=== PATIENT | female | born 1975 | race Caucasian/White ===

== ENCOUNTER 2017-01-29 12:00 | Inpatient (IN) | payer SELFPAY ==
[~2017-01-29] VITALS: Ht 175.3 cm; Wt 100.1 kg
[2017-01-29] VITALS (8 sets, daily range): BP systolic 91–142; BP diastolic 59–87; PULSE 97–135; RESP 16–20; TEMP 97.4–102.9; O2SAT 95–100
[2017-01-29] MEDS ORDERED: SODIUM CHLOR 0.9% 1000 ML INJ 400 ML IV ONE (12:27)
[2017-01-29] MEDS ORDERED: VANCOMYCIN INJ 1,000 MG in SODIUM CHLOR 0.9% 250 ML INJ 250 ML IV STA (12:27)
[2017-01-29] MEDS ORDERED: SODIUM CHLOR 0.9% 1000 ML INJ 1,000 ML IV ONE ×2 (12:27)
[2017-01-29] MEDS ORDERED: PIPERACIL-TAZO 4.5 GM PREMIX 100 ML IV STA (12:27)
--- NOTE | 2017-01-29 12:27 | PD ---
HPI Chief Complaint: Skin Problem Time Seen by Provider: 12:22 Travel History International Travel<30 days: No Contact w/Intl Traveler<30days: No Traveled to known affect area: No History of Present Illness HPI 41-year-old female presents to the emergency Department with 2 day history of fever, chills, severe sore throat, as well as left foot pain, swelling and erythema secondary to a crack between the third and fourth digits which is been present for 3 weeks according to the patient. Patient states she worked all day yesterday with swelling of the left foot causing a blister to the left distal lateral MIP joint. There is no drainage from that blister or the wound itself. Patient states the pain in the foot is an 8 out of 10. She states she's been having decreased ability to eat secondary to her throat pain the Past 2 days. Patient denies cough, shortness of breath, chest pain, abdominal pain, nausea, vomiting, or diarrhea. She denies urinary symptoms. Patient is not a smoker. 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 She has no history of diabetes. She does take blood pressure medication, but she states she gets it from the "urgent care clinic" but does not have a regular primary care physician. She states she did not take her blood pressure medicine this morning. She is allergic to seafood, and iodine, but no medication allergies. PFSH Past Medical History Hypertension: Yes ?: Not LMP: 01/12/17 Social History Alcohol Use: No Tobacco Use: No Substance Use: No Allergies-Medications (Allergen,Severity, Reaction): Coded Allergies: iodine (Verified Allergy, Unknown, 01/29/17) Uncoded Allergies: SEAFOOD (Allergy, Severe, ANAPHYLAXIS, 01/29/17) Reported Meds & Prescriptions Reported Meds & Active Scripts Active Reported Valsartan-Hydrochlorothiazide 160-25 Mg Tab 1 Tab PO DAILY Review of Systems Except as stated in HPI: all other systems reviewed are Neg General / Constitutional: Positive: Fever, Chills, Other (shaking chills the last 2 nights.) Eyes: No: Visual changes HENT: Positive: Sore Throat, No: Headaches, Vertigo, Lightheadedness, Rhinitis , Rhinorrhea, Congestion, Nosebleed, Neck Stiffness, Neck Pain, Ear Discharge, Earache Cardiovascular: No: Chest Pain or Discomfort Respiratory: No: Cough, Shortness of Breath Gastrointestinal: Positive: Nausea, No: Vomiting, Diarrhea, Abdominal Pain Genitourinary: No: Dysuria Musculoskeletal: No: Pain Skin: No Rash Neurologic: No: Weakness Psychiatric: No: Anxiety, Depression, Suicidal Ideations, Homicidal Ideation Endocrine: No: Polydipsia Hematologic/Lymphatic: No: Easy Bruising Physical Exam Narrative GENERAL: Patient appears in no acute distress. SKIN: Warm and dry. Normal color. Normal turgor. Patient has a fissure secondary to athlete's foot between the third and fourth digits with localized swelling, erythema, warmth, and tenderness. Patient has a serous fluid-filled blister to the distal lateral foot over the MIP joint. Erythema extends up to the ankle joint without further streaking noted. HEAD: Atraumatic. Normocephalic. EYES: Pupils equal and round. No scleral icterus. No injection or drainage. ENT: No nasal bleeding or discharge. Mucous membranes pink and moist. TMs are somewhat dull bilaterally with mild injection greater in the left than the right. Posterior pharynx shows swollen tonsils bilaterally with whitish exudate , but uvula is midline and airway appears patent. There is no sinus tenderness to palpation or percussion. NECK: Trachea midline. Supple nontender without significant lymphadenopathy. CARDIOVASCULAR: Regular rate and rhythm. RESPIRATORY: No accessory muscle use. Clear to auscultation. Breath sounds equal bilaterally. GASTROINTESTINAL: Abdomen soft, non-tender, nondistended. Hepatic and splenic margins not palpable. MUSCULOSKELETAL: Extremities without clubbing, cyanosis, or edema. No obvious deformities. Patient is swelling and tenderness along the dorsal and lateral foot where area of cellulitis is noted. There is no obvious signs of abscess or draining wound. Range of motion is full. Sensation is normal bilaterally in the lower extremities. NEUROLOGICAL: Awake and alert. No obvious cranial nerve deficits. Motor grossly within normal limits. Five out of 5 muscle strength in the arms and legs. Normal speech. PSYCHIATRIC: Appropriate mood and affect; insight and judgment normal. Data Data Last Documented VS Vital Signs Date Time Temp Pulse Resp B/P Pulse Ox O2 Delivery O2 Flow Rate FiO2 01/29/17 12:25 98.6 129 16 96/61 96 Room Air Orders Foot, Complete ([id number]) (01/29/17 12:27) Electrocardiogram (01/29/17 12:27) Complete Blood Count With Diff (01/29/17 12:27) Comprehensive Metabolic Panel (01/29/17 12:27) Lactic Acid Sepsis Protocol (01/29/17 12:27) Urinalysis - C+S If Indicated (01/29/17 12:27) Blood Culture (01/29/17 12:27) Chest, Single Ap (01/29/17 12:27) Blood Glucose (01/29/17 12:27) Ecg Monitoring (01/29/17 12:27) Iv Access Insert/Monitor (01/29/17 12:27) Oximetry (01/29/17 12:27) Oxygen Administration (01/29/17 12:27) Acetaminophen (Tylenol) (01/29/17 12:30) Piperacil-Tazo 4.5 Gm Premix (Zosyn 4.5 (01/29/17 12:27) Vancomycin Inj (Vancomycin Inj) (01/29/17 12:27) Sodium Chlor 0.9% 1000 Ml Inj (Ns 1000 M (01/29/17 12:27) Sodium Chlor 0.9% 1000 Ml Inj (Ns 1000 M (01/29/17 12:27) Sodium Chlor 0.9% 1000 Ml Inj (Ns 1000 M (01/29/17 12:27) Ketorolac Inj (Toradol Inj) (01/29/17 12:45) Urine Culture (01/29/17 12:40) Drug Screen, Random Urine (01/29/17 13:28) Ondansetron Inj (Zofran Inj) (01/29/17 13:45) Admit To Inpatient (01/29/17 ) Vital Signs (Adult) Q4H (01/29/17 14:56) Activity Oob With Assistance (01/29/17 14:56) Dance Artist / Telemetry .CONTINUOUS (01/29/17 14:56) Diet Regular Basic (01/29/17 Dinner) Sodium Chlor 0.9% 1000 Ml Inj (Ns 1000 M (01/29/17 14:56) Sodium Chloride 0.9% Flush (Ns Flush) (01/29/17 15:00) Sodium Chloride 0.9% Flush (Ns Flush) (01/29/17 21:00) Ondansetron Inj (Zofran Inj) (01/29/17 15:00) Basic Metabolic Panel (Bmp) (01/30/17 06:00) Complete Blood Count With Diff (01/30/17 06:00) Enoxaparin Inj (Lovenox Inj) (01/29/17 15:00) Acetaminophen (Tylenol) (01/29/17 15:00) Acetamin-Hydrocod 325-5 Mg ([place] 5-325 (01/29/17 15:00) Acetamin-Hydrocod 325-7.5 Mg ([place] 7.5 (01/29/17 15:00) Naloxone Inj (Narcan Inj) (01/29/17 15:00) Docusate Sodium-Senna (Claire-Colace) (01/29/17 21:00) Magnesium Hydroxide Liq (Milk Of Magnesi (01/29/17 15:00) Sennosides (Senokot) (01/29/17 15:00) Bisacodyl Supp (Dulcolax Supp) (01/29/17 15:00) Lactulose Liq (Lactulose Liq) (01/29/17 15:00) Inpatient Certification (01/29/17 ) Admit Order (Ed Use Only) (01/29/17 14:57) Labs Laboratory Tests Test 01/29/17 12:40 White Blood Count 22.7 TH/MM3 Red Blood Count 4.68 MIL/MM3 Hemoglobin 13.3 GM/DL Hematocrit 40.1 % Mean Corpuscular Volume 85.6 FL Mean Corpuscular Hemoglobin 28.5 PG Mean Corpuscular Hemoglobin 33.3 % Concent Red Cell Distribution Width 14.2 % Platelet Count 314 TH/MM3 Mean Platelet Volume 7.0 FL Neutrophils (%) (Auto) 88.2 % Lymphocytes (%) (Auto) 6.5 % Monocytes (%) (Auto) 3.9 % Eosinophils (%) (Auto) 1.1 % Basophils (%) (Auto) 0.3 % Neutrophils # (Auto) 20.0 TH/MM3 Lymphocytes # (Auto) 1.5 TH/MM3 Monocytes # (Auto) 0.9 TH/MM3 Eosinophils # (Auto) 0.3 TH/MM3 Basophils # (Auto) 0.1 TH/MM3 CBC Comment DIFF FINAL Differential Comment Urine Color YELLOW Urine Turbidity HAZY Urine pH 5.0 Urine Specific [place] 1.016 Urine Protein TRACE mg/dL Urine Glucose (UA) NEG mg/dL Urine Ketones NEG mg/dL Urine Occult Blood MOD Urine Nitrite NEG Urine Bilirubin NEG Urine Urobilinogen LESS THAN 2.0 MG/DL Urine Leukocyte Esterase TRACE Urine RBC 39 /hpf Urine WBC 8 /hpf Urine Squamous Epithelial 6 /hpf Cells Urine Bacteria OCC /hpf Urine Mucus FEW /lpf Microscopic Urinalysis Comment CATH-CULTURE IND Sodium Level 133 MEQ/L Potassium Level 3.3 MEQ/L Chloride Level 98 MEQ/L Carbon Dioxide Level 26.9 MEQ/L Anion Gap 8 MEQ/L Blood Urea Nitrogen 35 MG/DL Creatinine 2.17 MG/DL Estimat Glomerular Filtration 25 ML/MIN Rate Random Glucose 150 MG/DL Lactic Acid Level 1.5 mmol/L Calcium Level 8.0 MG/DL Total Bilirubin 0.5 MG/DL Aspartate Amino Transf 10 U/L (AST/SGOT) Alanine Aminotransferase 14 U/L (ALT/SGPT) Alkaline Phosphatase 103 U/L Total Protein 7.2 GM/DL Albumin 3.1 GM/DL Urine Opiates Screen NEG Urine Barbiturates Screen NEG Urine Amphetamines Screen NEG Urine Benzodiazepines Screen NEG Urine Cocaine Screen NEG Urine Cannabinoids Screen NEG MDM Medical Decision Making Medical Screen Exam Complete: Yes Emergency Medical Condition: Yes Differential Diagnosis Tonsillitis. Fever. Possible sepsis. Left foot cellulitis. Left foot blister. Hypotensive. Tachycardic. Narrative Course Patient appears medically stable at time of exam. Labs ordered including CBC, CMP, lactic acid, blood cultures 2, urinalysis. IV access is obtained and the patient is given normal saline bolus 3 L per sepsis protocol. EKG and chest x-ray is ordered. Patient is given 4.5 mg IV Zosyn, and 1000 mg IV vancomycin. Patient is given 30 mg Toradol IV as well as 1000 mg acetaminophen by mouth. Patient is discussed with Dr. Alcazar. CBC shows leukocytosis of 22.7. CMP shows potassium of 3.3, sodium of 133, BUN is 35, creatinine is 2.17, random glucose is 150, calcium is 8.0, albumin is 3.1 Lactic acid is 1.5. 1340 hrs. call was placed to the hospitalist for admission. 1400 hrs. patient's blood pressure is noted to be in the 70s over 50. A second IV is placed by nursing staff and third liter started of normal saline bolus. Dr. Alcazar is informed of this. Patient responded to third liter of fluid after second IV is placed. 1500 hrs. the patient was discussed with Dr. Gilliland who agreed to admit the patient. Sepsis Criteria SIRS Criteria (2 or more): Heart rate over 90, WBC > 23686, < 4000 or > 10% bands Sepsis Criteria (SIRS+source): Infect source susp/known Severe Sepsis (+one): Hypotension, Acute Oliguria/Renal Failure Criteria Outcome: Meets severe sepsis criteria Diagnosis Primary Impression: Sepsis Qualified Code: A41.9 - Sepsis, due to unspecified organism Additional Impressions: Hypotension Qualified Code: I95.9 - Hypotension, unspecified hypotension type Creatinine elevation Urinary tract infection Qualified Code: N30.01 - Acute cystitis with hematuria Tonsillitis Tachycardia Hyponatremia Hypokalemia Admitting Information Admitting Physician Requests: Admit Condition: Stable Jenaro Viveros Jan 29, 2017 12:27
[2017-01-29] MEDS ORDERED: VALS160T6 PO (12:28)
[2017-01-29] MEDS ORDERED: ACETAMINOPHEN 325 MG TAB PO ONE (12:30)
[2017-01-29] MEDS ORDERED: KETOROLAC TROMETHAMINE 30 MG/ML (IVP) VIAL IV PUSH ONE (12:45)
--- NOTE | 2017-01-29 13:05 | RADRPT ---
EXAM DATE/TIME: 01/29/2017 12:48 [facility] COMPARISON: No previous studies available for comparison. INDICATIONS : Fever. MEDICAL HISTORY : Hypertension. SURGICAL HISTORY : Tubal ligation. ENCOUNTER: Initial ACUITY: 3 days PAIN SCORE: 0/10 LOCATION: Bilateral chest FINDINGS: A single view of the chest demonstrates elevation right hemidiaphragm without evidence of mass, infil trate or effusion. The cardiomediastinal contours are unremarkable heart normal in size.. Osseous s tructures are intact. CONCLUSION: 1. Elevation right hemidiaphragm. Unknown chronicity. 2. Lungs otherwise clear. Tano Hollingsworth MD on January 29, 2017 at 13:03 Board Certified Radiologist. This report was verified electronically.
--- NOTE | 2017-01-29 13:06 | RADRPT ---
EXAM DATE/TIME: 01/29/2017 12:49 [facility] COMPARISON: No previous studies available for comparison. INDICATIONS : Left foot pain and swelling. No prior trauma. Round blister near fifth digit. MEDICAL HISTORY : None. SURGICAL HISTORY : Tubal ligation. ENCOUNTER: Initial ACUITY: 2 weeks PAIN SCORE: 10/10 LOCATION: Left foot. FINDINGS: Three view examination of the left foot demonstrates no dislocation, or fracture. Soft tissue promin ence adjacent to the fifth metatarsophalangeal joint. The tarsal bones appear intact. The interphala ngeal and metatarsophalangeal joints are intact. The calcaneus is intact. Bony mineralization is no rmal. CONCLUSION: Soft tissue prominence lateral distal left foot. No fracture or periosteal reaction. Tano Hollingsworth MD on January 29, 2017 at 13:04 Board Certified Radiologist. This report was verified electronically.
[2017-01-29 13:09] LABS: BASOPHIL # 0.1 TH/MM3 (0-0.2); BASOPHIL % 0.3 % (0.0-2.0); EOSINOPHIL # 0.3 TH/MM3 (0-0.4); EOSINOPHIL % 1.1 % (0.0-4.0); HEMATOCRIT 40.1 % (35.0-46.0); HEMO FLAGS DIFF FINAL; LYMPH % 6.5 % (9.0-44.0); LYMPHOCYTE # 1.5 TH/MM3 (1.0-4.8); MEAN CELL VOLUME 85.6 FL (80.0-100.0); MEAN CORPUSCULAR HEMOGLOBIN 28.5 PG (27.0-34.0); MEAN CORPUSCULAR HGB CONC 33.3 % (32.0-36.0); MONO % 3.9 % (0.0-8.0); NEUT % 88.2 % (16.0-70.0); PLATELET COUNT 314 TH/MM3 (150-450); RED BLOOD COUNT 4.68 MIL/MM3 (4.00-5.30); RED CELL DISTRIBUTION WIDTH 14.2 % (11.6-17.2); WHITE BLOOD COUNT 22.7 TH/MM3 (4.0-11.0)
[2017-01-29 13:15] LABS: BACTERIA, URINE OCC /hpf; BLOOD, URINE MOD (NEG); COMMENT (UR) CATH-CULTURE IND; CULTURE IF INDICATED CATH CULTURE IND; GLUCOSE,URINE NEG (NEG); KETONE, URINE NEG (NEG); MUCUS URINE FEW /lpf (OCC); NITRITE,URINE NEG (NEG); SQUAMOUS EPITHELIAL CELL URINE 6 /hpf (0-5); URINE COLOR YELLOW (YELLW/STRAW)
[2017-01-29 13:25] LABS: ANION GAP 8 MEQ/L (5-15); AST (GOT) 10 U/L (15-37); BICARBONATE 26.9 MEQ/L (21.0-32.0); BLOOD UREA NITROGEN 35 MG/DL (7-18); CHLORIDE 98 MEQ/L (98-107); GLOMERULAR FILTRATION RATE 25 ML/MIN (>89); POTASSIUM 3.3 MEQ/L (3.5-5.1); SODIUM (NA) 133 MEQ/L (136-145)
[2017-01-29 13:26] LABS: ALT (GPT) 14 U/L (10-53)
[2017-01-29 13:28] LABS: ALKALINE PHOSPHATASE 103 U/L (45-117); TOTAL BILIRUBIN ADULT 0.5 MG/DL (0.2-1.0)
[2017-01-29] MEDS ORDERED: ONDANSETRON HCL 4 MG/2 ML VIAL IV PUSH ONE (13:45)
[2017-01-29] MEDS ORDERED: ONDANSETRON HCL 4 MG/2 ML VIAL IVP PRN (15:00)
[2017-01-29] MEDS ORDERED: NALOXONE HCL 0.4 MG/ML AMP IV PRN (15:00)
[2017-01-29] MEDS ORDERED: ACETAMINOPHEN/HYDROcodone 325 MG/5 MG TAB PO PRN (15:00)
[2017-01-29] MEDS ORDERED: SENNOSIDES 8.6 MG TAB PO PRN (15:00)
[2017-01-29] MEDS ORDERED: BISACODYL 10 MG SUPP RECTAL PRN (15:00)
[2017-01-29] MEDS ORDERED: MAGNESIUM HYDROXIDE SUSP 30 ML CUP PO PRN (15:00)
[2017-01-29] MEDS ORDERED: SODIUM CHLORIDE 0.9% FLUSH 10 ML FLUSH IV FLUSH PRN (15:00)
[2017-01-29] MEDS ORDERED: LACTULOSE SYRUP 20 GM/30 ML CUP PO PRN (15:00)
[2017-01-29] MEDS: SODIUM CHLOR 0.9% 1000 ML INJ 1,000 ML IV SCH ×2 (15:44→21:10)
[2017-01-29] MEDS: ENOXAPARIN SODIUM 40 MG/0.4 ML SYRINGE SQ SCH (15:45)
[2017-01-29] MEDS ORDERED: Vancomycin Consult Pharmacy 1 EA OTHER SCH (17:00)
--- NOTE | 2017-01-29 17:36 | HHI.HP ---
[facility] Primary Care Physician No Primary Care Physician Admission Diagnosis Sepsis/Left foot cellulitis/UTI/Hypotension/ Diagnoses: Travel History International Travel<30 Days: No Contact w/Intl Traveler <30 Da: No Traveled to Known Affected Are: No Sepsis Criteria SIRS Criteria (2 or more): Heart rate over 90, WBC > 54771, < 4000 or > 10% bands Sepsis Criteria (SIRS+source): Infect source susp/known Severe Sepsis (+one): Organ Dysfunction, Hypotension History of Present Illness Mrs. Hernandez is a 41 year old female. She came into the ER today secondary to a left foot infection. She says that she's had a fissure between her third and fourth toe and that this has become tender has opened has started draining and erythema has spread up her distal foot she has a blister laterally. At this time she also reports that she's developed a sore throat. She denies any urinary symptoms. Findings today are consistent with sepsis. These include tachycardia, leukocytosis, transient hypotension, and acute renal insufficiency. Her vital signs and lab findings are worse in her clinical presentation. Sepsis is explained to the patient and she is agreeable to stay. No other complaints today. She is healthy at baseline and denies any previous infections like this. She does not know of any immunocompromise status. She does not abuse drugs and has never used IV drugs. She feels she is not at high risk for HIV exposure, but is willing to have testing of this. Review of Systems Constitutional: COMPLAINS OF: Fatigue, Fever, DENIES: Weight loss Eyes: DENIES: Blurred vision, Diplopia, Vision loss Ears, nose, mouth, throat: COMPLAINS OF: Throat pain, DENIES: Hearing loss, Vertigo Respiratory: DENIES: Apneas, Cough, Snoring, Wheezing, Sputum production Cardiovascular: DENIES: Chest pain, Palpitations, Syncope Gastrointestinal: DENIES: Abdominal pain, Black stools, Bloody stools Musculoskeletal: COMPLAINS OF: Joint pain, Joint Swelling, DENIES: Muscle aches, Stiffness Integumentary: DENIES: Abnormal pigmentation Hematologic/lymphatic: DENIES: Bruising Neurologic: DENIES: Abnormal gait, Headache Psychiatric: DENIES: Anxiety, Confusion Past Family Social History Past Medical History Hypertension Borderline diabetes Past Surgical History Tubal ligation Reported Medications Reported Meds & Active Scripts Active Reported Valsartan-Hydrochlorothiazide 160-25 Mg Tab 1 Tab PO DAILY Allergies: Coded Allergies: iodine (Verified Allergy, Unknown, 01/29/17) Uncoded Allergies: SEAFOOD (Allergy, Severe, ANAPHYLAXIS, 01/29/17) Active Ordered Medications Administered Medications Medications (Trade) Dose Ordered Sig/Roman Route PRN Reason Start Time Stop Time Status Last Admin Dose Admin Sodium Chloride (NS 1000 ml Inj) 1,000 ml @ 150 mls/hr Q6H40M IV 01/29/17 14:56 01/29/17 15:44 Enoxaparin Sodium (Lovenox Inj) 40 mg Q24H SQ 01/29/17 16:00 01/29/17 15:45 Family History Mother secondary to ALS Father has hypertension and a history of CVA 9 Social History No history of smoking No history of drinking alcohol No history of drug abuse Physical Exam Vital Signs Vital Signs Date Time Temp Pulse Resp B/P Pulse Ox O2 Delivery O2 Flow Rate FiO2 01/29/17 15:37 105 16 96/61 95 Room Air 01/29/17 12:25 98.6 129 16 96/61 96 Room Air 01/29/17 12:03 98.6 121 18 101/65 96 Physical Exam GENERAL: NAD, A&Ox3 HEAD: Normocephalic. Erythematous, enlarged, and purulent tonsils bilaterally NECK: Supple, trachea midline. No lymphadenopathy. EYES: No scleral icterus. No injection or drainage. CARDIOVASCULAR: Regular rate and rhythm without murmurs, gallops, or rubs. RESPIRATORY: Breath sounds equal bilaterally. No accessory muscle use. GASTROINTESTINAL: Abdomen soft, non-tender, nondistended. MUSCULOSKELETAL: No cyanosis, or edema. SKIN: Warm and dry. Distal foot is erythematous with lateralization and 1.5 cm blister laterally. She has a fissure between her third and fourth toe with scabbing and visible drainage. NEURO: No focal neurological deficitis. Laboratory Laboratory Tests Test 01/29/17 12:40 White Blood Count 22.7 Red Blood Count 4.68 Hemoglobin 13.3 Hematocrit 40.1 Mean Corpuscular Volume 85.6 Mean Corpuscular Hemoglobin 28.5 Mean Corpuscular Hemoglobin 33.3 Concent Red Cell Distribution Width 14.2 Platelet Count 314 Mean Platelet Volume 7.0 Neutrophils (%) (Auto) 88.2 Lymphocytes (%) (Auto) 6.5 Monocytes (%) (Auto) 3.9 Eosinophils (%) (Auto) 1.1 Basophils (%) (Auto) 0.3 Neutrophils # (Auto) 20.0 Lymphocytes # (Auto) 1.5 Monocytes # (Auto) 0.9 Eosinophils # (Auto) 0.3 Basophils # (Auto) 0.1 CBC Comment DIFF FINAL Differential Comment Urine Color YELLOW Urine Turbidity HAZY Urine pH 5.0 Urine Specific [place] 1.016 Urine Protein TRACE Urine Glucose (UA) NEG Urine Ketones NEG Urine Occult Blood MOD Urine Nitrite NEG Urine Bilirubin NEG Urine Urobilinogen LESS THAN 2.0 Urine Leukocyte Esterase TRACE Urine RBC 39 Urine WBC 8 Urine Squamous Epithelial 6 Cells Urine Bacteria OCC Urine Mucus FEW Microscopic Urinalysis Comment CATH-CULTURE IND Sodium Level 133 Potassium Level 3.3 Chloride Level 98 Carbon Dioxide Level 26.9 Anion Gap 8 Blood Urea Nitrogen 35 Creatinine 2.17 Estimat Glomerular Filtration 25 Rate Random Glucose 150 Lactic Acid Level 1.5 Calcium Level 8.0 Total Bilirubin 0.5 Aspartate Amino Transf 10 (AST/SGOT) Alanine Aminotransferase 14 (ALT/SGPT) Alkaline Phosphatase 103 Total Protein 7.2 Albumin 3.1 Urine Opiates Screen NEG Urine Barbiturates Screen NEG Urine Amphetamines Screen NEG Urine Benzodiazepines Screen NEG Urine Cocaine Screen NEG Urine Cannabinoids Screen NEG Date/Time Procedure Status Source Growth 01/29/17 12:40 Urine Culture Received Urine Catheterized Urine Pending 01/29/17 12:40 Aerobic Blood Culture Received Blood Peripheral Pending 01/29/17 12:40 Anaerobic Blood Culture Received Blood Peripheral Pending Result Diagram: 01/29/17 1240 01/29/17 1240 Assessment and Plan Problem List: (1) Urinary tract infection ICD Code: N39.0 Status: Acute (2) Hyponatremia ICD Code: E87.1 Status: Acute (3) Tonsillitis ICD Code: J03.90 Status: Acute (4) Hypokalemia ICD Code: E87.6 Status: Acute (5) Tachycardia ICD Code: R00.0 Status: Acute (6) Creatinine elevation ICD Code: R79.89 Status: Acute (7) Elevated lactic acid level ICD Code: R79.89 Status: Acute (8) Hypotension ICD Code: I95.9 Status: Acute (9) Sepsis ICD Code: A41.9 Status: Acute (10) Severe sepsis ICD Code: A41.9 Status: Acute Assessment and Plan Assessment and plan 41-year-old female admitted secondary to sepsis with infections of the tonsils and cellulitis of the left foot and UTI. Severe sepsis Hypotension at time of admit, responded to fluid boluses Monitor on telemetry Treat infections IV hydration UTI Bacterial tonsillitis Left foot cellulitis Start Zosyn and vancomycin Monitor blood cultures Monitor urine culture Follow for improvement HIV screen Acute kidney injury Likely secondary to sepsis and possibly hypotension as an outpatient Hypertension Hold blood pressure treatments for now secondary to hypotension Follow blood pressures Resume baseline treatments once blood pressures increase Hyperglycemia Likely reactive History of borderline diabetes Hemoglobin A1c Follow blood sugars DVT prophylaxis Lovenox Discharge planning Patient will need to improve prior to consideration for discharge Physician Certification 2 Midnight Certification Type: Admission for Inpatient Services Order for Inpatient Services The services are ordered in accordance with Medicare regulations or non- Medicare payer requirements, as applicable. In the case of services not specified as inpatient-only, they are appropriately provided as inpatient services in accordance with the 2-midnight benchmark. Estimated LOS (days): 3 days is the estimated time the patient will need to remain in the hospital, assuming treatment plan goals are met and no additional complications. Post-Hospital Plan: Home Problem Qualifiers (1) Urinary tract infection: Qualified Code: N30.01 - Acute cystitis with hematuria (2) Hypotension: Qualified Code: I95.9 - Hypotension, unspecified hypotension type (3) Sepsis: Qualified Code: A41.9 - Sepsis, due to unspecified organism Kaleb Gilliland MD Jan 29, 2017 17:36
[2017-01-29] MEDS ORDERED: VANCOMYCIN 1,500 MG/NS 500 ML IV ONE ×2 (20:00)
[2017-01-29] MEDS: DOCUSATE SODIUM 50 MG/SENNA 8.6 MG TAB PO SCH (21:00)
[2017-01-29] MEDS: SODIUM CHLORIDE 0.9% FLUSH 10 ML FLUSH IV FLUSH SCH (21:08)
[2017-01-29] MEDS: PIPERACIL-TAZO 3.375 GM PREMIX 50 ML IV SCH (21:09)
[2017-01-30] VITALS (7 sets, daily range): BP systolic 84–135; BP diastolic 50–84; PULSE 96–121; RESP 16–20; TEMP 97.9–101.4; O2SAT 97–98
[2017-01-30] MEDS ORDERED: VANCOMYCIN INJ 1,000 MG in SODIUM CHLOR 0.9% 250 ML INJ 250 ML IV SCH ×2
[2017-01-30] MEDS: ACETAMINOPHEN 325 MG TAB PO PRN ×3 (00:25→20:35)
[2017-01-30] MEDS ORDERED: KETOROLAC TROMETHAMINE 30 MG/ML (IVP) VIAL IV PUSH ONE (00:45)
[2017-01-30] MEDS: SODIUM CHLOR 0.9% 1000 ML INJ 1,000 ML IV SCH ×4 (03:16→20:38)
[2017-01-30] MEDS: PIPERACIL-TAZO 3.375 GM PREMIX 50 ML IV SCH ×3 (04:22→20:35)
[2017-01-30 06:43] LABS: ANION GAP 10 MEQ/L (5-15); BICARBONATE 21.4 MEQ/L (21.0-32.0); BLOOD UREA NITROGEN 27 MG/DL (7-18); CHLORIDE 112 MEQ/L (98-107); GLOMERULAR FILTRATION RATE 37 ML/MIN (>89); POTASSIUM 3.3 MEQ/L (3.5-5.1); SODIUM (NA) 143 MEQ/L (136-145)
[2017-01-30 06:57] LABS: CALCIUM-PROTEIN CORRECTED 7.9 MG/DL (8.5-10.1)
[2017-01-30] MEDS ORDERED: POTASSIUM CHLORIDE 10 MEQ CONTROLLED RELEASE TAB PO ONE (07:45)
[2017-01-30] MEDS: SODIUM CHLORIDE 0.9% FLUSH 10 ML FLUSH IV FLUSH SCH ×2 (09:00→19:51)
[2017-01-30] MEDS: DOCUSATE SODIUM 50 MG/SENNA 8.6 MG TAB PO SCH ×2 (09:00→19:51)
[2017-01-30 12:21] LABS: BASOPHIL # 0.1 TH/MM3 (0-0.2); BASOPHIL % 0.7 % (0.0-2.0); EOSINOPHIL # 0.4 TH/MM3 (0-0.4); EOSINOPHIL % 2.4 % (0.0-4.0); HEMATOCRIT 33.1 % (35.0-46.0); HEMO FLAGS DIFF FINAL; LYMPH % 9.8 % (9.0-44.0); LYMPHOCYTE # 1.5 TH/MM3 (1.0-4.8); MEAN CELL VOLUME 87.2 FL (80.0-100.0); MEAN CORPUSCULAR HEMOGLOBIN 28.3 PG (27.0-34.0); MEAN CORPUSCULAR HGB CONC 32.5 % (32.0-36.0); MONO % 5.2 % (0.0-8.0); NEUT % 81.9 % (16.0-70.0); PLATELET COUNT 249 TH/MM3 (150-450); RED CELL DISTRIBUTION WIDTH 14.2 % (11.6-17.2); WHITE BLOOD COUNT 15.8 TH/MM3 (4.0-11.0)
[2017-01-30 12:52] LABS: HEMOGLOBIN A1a 0.9 %; HEMOGLOBIN Ao 85.1 %
--- NOTE | 2017-01-30 15:23 | EKG ---
Date Performed: 01/29/2017 Time Performed: 13:32:14 PTAGE: 41 years EKG: SINUS TACHYCARDIA ABNORMAL RHYTHM ECG NO PREVIOUS TRACING DOCTOR: Herbie Joseph Interpretating Date/Time 01/30/2017 15:21:07
--- NOTE | 2017-01-30 15:28 | HHI.PR ---
Subjective Remarks Fevers persisted overnight. Signs of sepsis are still present. However, sepsis signs are improving. Patient has no new complaints. No worsening of her infectious symptoms. Objective Vital Signs Date Time Temp Pulse Resp B/P (MAP) Pulse Ox O2 Delivery O2 Flow Rate FiO2 01/30/17 12:00 97.9 97 16 103/61 (75) 97 01/30/17 08:00 98.0 97 16 84/53 (63) 98 01/30/17 04:00 98.7 109 20 93/50 (64) 98 01/30/17 02:44 99.4 01/30/17 01:50 18 01/30/17 01:50 18 01/30/17 01:43 101.4 01/29/17 22:59 102.9 135 20 142/87 (105) 98 01/29/17 20:09 113 01/29/17 19:00 97.4 102 20 99/63 (75) 100 01/29/17 17:58 101 16 101/70 (80) 96 Room Air 01/29/17 17:24 97 18 91/59 (70) 95 Room Air 01/29/17 15:37 105 16 96/61 (73) 95 Room Air I/O 01/29/17 01/29/17 01/29/17 01/30/17 01/30/17 01/30/17 06:59 14:59 22:59 06:59 14:59 22:59 Intake Total 1079 ml 816 ml Balance 1079 ml 816 ml Intake IV Total 1079 ml 816 ml Result Diagram: 01/30/17 0440 01/30/17 0440 A/P Problem List: (1) Elevated lactic acid level ICD Code: R79.89 - Other specified abnormal findings of blood chemistry Status: Acute (2) Creatinine elevation ICD Code: R79.89 - Other specified abnormal findings of blood chemistry Status: Acute (3) Severe sepsis ICD Code: A41.9 - Sepsis, unspecified organism; R65.20 - Severe sepsis without septic shock Status: Acute (4) Tonsillitis ICD Code: J03.90 - Acute tonsillitis, unspecified Status: Acute (5) Hypotension ICD Code: I95.9 - Hypotension, unspecified Status: Acute (6) Sepsis ICD Code: A41.9 - Sepsis, unspecified organism Status: Acute (7) Tachycardia ICD Code: R00.0 - Tachycardia, unspecified Status: Acute (8) Hyponatremia ICD Code: E87.1 - Hypo-osmolality and hyponatremia Status: Acute (9) Urinary tract infection ICD Code: N39.0 - Urinary tract infection, site not specified Status: Acute (10) Hypokalemia ICD Code: E87.6 - Hypokalemia Status: Acute Assessment and Plan Assessment and plan 41-year-old female admitted secondary to sepsis with infections of the tonsils and cellulitis of the left foot and UTI. Improving thus far. Further antibiotics monitoring needed. HIV screen is pending. Renal function has improved. Severe sepsis Severe sepsis resolved, patient still makes sepsis criteria in a.m. Monitor on telemetry Treat infections IV hydration UTI Bacterial tonsillitis Left foot cellulitis Continue Zosyn and vancomycin Monitor blood cultures Monitor urine culture Follow for improvement HIV screen pending Acute kidney injury Likely secondary to sepsis and possibly hypotension as an outpatient Improving Continue to monitor renal function Hypertension Improved Hold blood pressure treatments for now secondary to hypotension Follow blood pressures Resume baseline treatments once blood pressures increase Hyperglycemia Likely reactive History of borderline diabetes Hemoglobin A1c Follow blood sugars DVT prophylaxis Lovenox Discharge planning Patient will need to improve prior to consideration for discharge Problem Qualifiers (1) Hypotension: (2) Sepsis: (3) Urinary tract infection: Kaleb Gilliland MD Jan 30, 2017 15:28
[2017-01-30] MEDS: ENOXAPARIN SODIUM 40 MG/0.4 ML SYRINGE SQ SCH (16:00)
[2017-01-30] MEDS: VANCOMYCIN 1,000 MG/NS 250 ML IV SCH ×2 (18:10)
[2017-01-31] VITALS (7 sets, daily range): BP systolic 112–151; BP diastolic 75–100; PULSE 94–104; RESP 18–20; TEMP 97.3–98.9; O2SAT 93–99
[2017-01-31] MEDS: ACETAMINOPHEN/HYDROcodone 325 MG/7.5 MG TAB PO PRN ×2 (00:08→05:06)
[2017-01-31] MEDS: SODIUM CHLOR 0.9% 1000 ML INJ 1,000 ML IV SCH ×2 (03:59→14:00)
[2017-01-31] MEDS: PIPERACIL-TAZO 3.375 GM PREMIX 50 ML IV SCH ×3 (05:02→22:12)
[2017-01-31] MEDS: DOCUSATE SODIUM 50 MG/SENNA 8.6 MG TAB PO SCH ×2 (08:27→21:00)
[2017-01-31] MEDS: SODIUM CHLORIDE 0.9% FLUSH 10 ML FLUSH IV FLUSH SCH ×2 (08:27→22:12)
[2017-01-31] MEDS: VANCOMYCIN 1,000 MG/NS 250 ML IV SCH ×2 (08:27)
[2017-01-31 09:43] LABS: HEMATOCRIT 33.9 % (35.0-46.0); MEAN CELL VOLUME 86.1 FL (80.0-100.0); MEAN CORPUSCULAR HEMOGLOBIN 27.5 PG (27.0-34.0); MEAN CORPUSCULAR HGB CONC 31.9 % (32.0-36.0); PLATELET COUNT 276 TH/MM3 (150-450); RED BLOOD COUNT 3.94 MIL/MM3 (4.00-5.30); RED CELL DISTRIBUTION WIDTH 13.9 % (11.6-17.2); REVIEW FLAG FINAL; WHITE BLOOD COUNT 11.6 TH/MM3 (4.0-11.0)
[2017-01-31 10:22] LABS: BICARBONATE 23.7 MEQ/L (21.0-32.0); POTASSIUM 3.8 MEQ/L (3.5-5.1)
[2017-01-31] MEDS: ACETAMINOPHEN 325 MG TAB PO PRN ×2 (13:45→22:11)
--- NOTE | 2017-01-31 16:33 | HHI.PR ---
Subjective Remarks The results are resolving. Leukocytosis improving. Signs of infection are overall improving. Main problem today is nausea and vomiting. This may have been triggered by narcotics. Patient visited again in the afternoon and still has nausea with some vomiting. Objective Vital Signs Date Time Temp Pulse Resp B/P (MAP) Pulse Ox O2 Delivery O2 Flow Rate FiO2 01/31/17 12:00 97.6 99 20 136/93 (107) 96 01/31/17 08:00 94 01/31/17 08:00 98.1 99 20 131/80 (97) 94 01/31/17 04:00 98.9 101 18 112/75 (87) 93 01/31/17 04:00 Room Air 01/31/17 00:00 Room Air 01/31/17 00:00 98.9 103 18 117/78 (91) 95 01/30/17 20:00 99.2 114 19 135/84 (101) 97 01/30/17 20:00 Room Air 01/30/17 20:00 121 I/O 01/30/17 01/30/17 01/30/17 01/31/17 01/31/17 01/31/17 07:00 15:00 23:00 07:00 15:00 23:00 Intake Total 816 ml 720 ml 250 ml 2458 ml Balance 816 ml 720 ml 250 ml 2458 ml Intake Oral 720 ml 960 ml IV Total 816 ml 250 ml 1498 ml # Voids 8 16 # Bowel Movements 4 Result Diagram: 01/31/17 0835 01/31/17 0835 A/P Problem List: (1) Elevated lactic acid level ICD Code: R79.89 - Other specified abnormal findings of blood chemistry Status: Acute (2) Creatinine elevation ICD Code: R79.89 - Other specified abnormal findings of blood chemistry Status: Acute (3) Severe sepsis ICD Code: A41.9 - Sepsis, unspecified organism; R65.20 - Severe sepsis without septic shock Status: Acute (4) Tonsillitis ICD Code: J03.90 - Acute tonsillitis, unspecified Status: Acute (5) Hypotension ICD Code: I95.9 - Hypotension, unspecified Status: Acute (6) Sepsis ICD Code: A41.9 - Sepsis, unspecified organism Status: Acute (7) Tachycardia ICD Code: R00.0 - Tachycardia, unspecified Status: Acute (8) Hyponatremia ICD Code: E87.1 - Hypo-osmolality and hyponatremia Status: Acute (9) Urinary tract infection ICD Code: N39.0 - Urinary tract infection, site not specified Status: Acute (10) Hypokalemia ICD Code: E87.6 - Hypokalemia Status: Acute Assessment and Plan Assessment and plan 41-year-old female admitted secondary to sepsis with infections of the tonsils and cellulitis of the left foot and UTI. Improving thus far. Further antibiotics monitoring needed. HIV screen is negative. Renal function has improved. Antiemetics are present for patient's nausea today. Continue IV hydration and lower rate. Plan for discharge tomorrow. Severe sepsis Severe sepsis resolved, patient still makes sepsis criteria in a.m. Monitor on telemetry Treat infections IV hydration UTI Bacterial tonsillitis Left foot cellulitis Continue Zosyn and vancomycin Monitor blood cultures Monitor urine culture Follow for improvement HIV screen pending Acute kidney injury Likely secondary to sepsis and possibly hypotension as an outpatient Improving Continue to monitor renal function Hypertension Improved Hold blood pressure treatments for now secondary to hypotension Follow blood pressures Resume baseline treatments once blood pressures increase Hyperglycemia Likely reactive History of borderline diabetes Hemoglobin A1c Follow blood sugars DVT prophylaxis Lovenox Discharge planning Plan for discharge home tomorrow if patient is able to tolerate by mouth intake. Problem Qualifiers (1) Hypotension: (2) Sepsis: (3) Urinary tract infection: Kaleb Gilliland MD Jan 31, 2017 16:33
[2017-01-31] MEDS: ENOXAPARIN SODIUM 40 MG/0.4 ML SYRINGE SQ SCH (17:28)
[2017-01-31] MEDS: VANCOMYCIN 1,500 MG/NS 500 ML IV SCH ×2 (18:31)
[2017-02-01] VITALS: BP 136/99; PULSE 107; RESP 20; TEMP 97.5
[2017-02-01] MEDS ORDERED: PHARMACY ORDERED LAB ONE (01:45)
[2017-02-01] MEDS: ACETAMINOPHEN 325 MG TAB PO PRN ×2 (04:00→10:11)
[2017-02-01] MEDS: SODIUM CHLOR 0.9% 1000 ML INJ 1,000 ML IV SCH (05:52)
[2017-02-01] MEDS: PIPERACIL-TAZO 3.375 GM PREMIX 50 ML IV SCH (06:38)
[2017-02-01 08:00] VITALS: BP 134/95; PULSE 102; PULSE 104; RESP 20; TEMP 98.9; O2SAT 93
[2017-02-01] MEDS: DOCUSATE SODIUM 50 MG/SENNA 8.6 MG TAB PO SCH (09:00)
[2017-02-01] MEDS: SODIUM CHLORIDE 0.9% FLUSH 10 ML FLUSH IV FLUSH SCH (09:00)
[2017-02-01] MEDS: VANCOMYCIN 1,500 MG/NS 500 ML IV SCH ×2 (10:02)
[2017-02-01 12:00] VITALS: BP 141/103; PULSE 97; RESP 20; TEMP 98.1; O2SAT 97
[2017-02-01] MEDS ORDERED: LACTTAB8 PO (12:33)
[2017-02-01] MEDS ORDERED: BACT800T5 PO (12:33)
[2017-02-01] MEDS ORDERED: AUGM875T3 PO (12:33)
--- NOTE | 2017-02-01 14:48 | HHI.DS ---
Discharge Summary Admission Date Jan 29, 2017 at 15:01 Discharge Date: Feb 01, 2017 Admitting Diagnosis Sepsis/Left foot cellulitis/UTI/Hypotension/ (1) Urinary tract infection ICD Code: N39.0 - Urinary tract infection, site not specified Diagnosis: Principal Status: Acute (2) Hyponatremia ICD Code: E87.1 - Hypo-osmolality and hyponatremia Diagnosis: Principal Status: Acute (3) Tonsillitis ICD Code: J03.90 - Acute tonsillitis, unspecified Diagnosis: Principal Status: Acute (4) Hypokalemia ICD Code: E87.6 - Hypokalemia Diagnosis: Principal Status: Acute (5) Tachycardia ICD Code: R00.0 - Tachycardia, unspecified Diagnosis: Principal Status: Acute (6) Creatinine elevation ICD Code: R79.89 - Other specified abnormal findings of blood chemistry Diagnosis: Principal Status: Acute (7) Elevated lactic acid level ICD Code: R79.89 - Other specified abnormal findings of blood chemistry Diagnosis: Principal Status: Acute (8) Hypotension ICD Code: I95.9 - Hypotension, unspecified Diagnosis: Principal Status: Acute (9) Sepsis ICD Code: A41.9 - Sepsis, unspecified organism Diagnosis: Principal Status: Acute (10) Severe sepsis ICD Code: A41.9 - Sepsis, unspecified organism; R65.20 - Severe sepsis without septic shock Diagnosis: Principal Status: Acute Procedures none Brief History - From Admission Mrs. Hernandez is a 41 year old female. She came into the ER today secondary to a left foot infection. She says that she's had a fissure between her third and fourth toe and that this has become tender has opened has started draining and erythema has spread up her distal foot she has a blister laterally. At this time she also reports that she's developed a sore throat. She denies any urinary symptoms. Findings today are consistent with sepsis. These include tachycardia, leukocytosis, transient hypotension, and acute renal insufficiency. Her vital signs and lab findings are worse in her clinical presentation. Sepsis is explained to the patient and she is agreeable to stay. No other complaints today. She is healthy at baseline and denies any previous infections like this. She does not know of any immunocompromise status. She does not abuse drugs and has never used IV drugs. She feels she is not at high risk for HIV exposure, but is willing to have testing of this. CBC/BMP: 01/31/17 0835 01/31/17 0835 Significant Findings Laboratory Tests Test 01/30/17 04:40 01/31/17 08:35 White Blood Count 15.8 TH/MM3 (4.0-11.0) 11.6 TH/MM3 (4.0-11.0) Red Blood Count 3.80 MIL/MM3 (4.00-5.30) 3.94 MIL/MM3 (4.00-5.30) Hemoglobin 10.8 GM/DL (11.6-15.3) 10.8 GM/DL (11.6-15.3) Hematocrit 33.1 % (35.0-46.0) 33.9 % (35.0-46.0) Neutrophils (%) (Auto) 81.9 % (16.0-70.0) Neutrophils # (Auto) 13.0 TH/MM3 (1.8-7.7) Blood Urea Nitrogen 27 MG/DL (7-18) Creatinine 1.53 MG/DL (0.50-1.00) 1.02 MG/DL (0.50-1.00) Total Protein 5.9 GM/DL (6.4-8.2) Calcium Level 7.3 MG/DL (8.5-10.1) 7.7 MG/DL (8.5-10.1) Potassium Level 3.3 MEQ/L (3.5-5.1) Chloride Level 112 MEQ/L (98-107) 113 MEQ/L (98-107) Estimat Glomerular Filtration Rate 37 ML/MIN (>89) 59 ML/MIN (>89) Protein Corrected Calcium 7.9 MG/DL (8.5-10.1) Mean Corpuscular Hemoglobin Concent 31.9 % (32.0-36.0) Hospital Course Mrs. Hernandez is a 41-year-old female. She was admitted secondary to severe sepsis which may have been associated with 3 infections that were also present including tonsillitis, UTI, and left foot cellulitis. She was treated with vancomycin and Zosyn and had good response. Sepsis resolved by the second day. However she developed hyperemesis secondary to narcotics and was kept overnight she was able to tolerate by mouth intake. Today she is feeling better with continued progression in her healing and continued regression of her infections. She was screen for HIV and was negative. Medically stable for discharge to home today. Pt Condition on Discharge: Stable Discharge Disposition: Discharge Home Discharge Time: <= 30 minutes Discharge Instructions DIET: Follow Instructions for: As Tolerated, No Restrictions Activities you can perform: Regular-No Restrictions Follow up Referrals: PCP Follow-up - 2 Weeks New Medications: Amoxicillin-Clavulanate (Augmentin) 875-125 Mg Tab 1 TAB PO BID for Infection, #10 TAB 0 Refills Lactobacillus Acidophilus (Lactobacillus Acidophilus) 1 Tab Tab 1 TAB PO TIDAC for Nutritional Supplement, #30 TAB 0 Refills Sulfamethoxazole-Trimethoprim (Bactrim DS) 800-160 Mg Tab 1 TAB PO BID for Infection, #10 TAB 0 Refills Continued Medications: Valsartan-Hydrochlorothiazide (Valsartan-Hydrochlorothiazide) 160-25 Mg Tab 1 TAB PO DAILY for Blood Pressure Management, #30 TAB 0 Refills Kaleb Gilliland MD Feb 01, 2017 14:48
[2017-02-02] MEDS ORDERED: PHARMACY ORDERED LAB ONE (05:45)
== END 2017-02-01 16:30 | disposition home or self-care (01) | DRG 872 ==
LOC: NEPD 12:00 → NEDA 15:01 → N04B 18:44
PROVIDERS: ADMIT Hospitalist; ATTEND Hospitalist
DX: A41.9 Sepsis, unspecified organism (principal); N17.9 Acute kidney failure, unspecified; L03.116 Cellulitis of left lower limb; E87.1 Hypo-osmolality and hyponatremia; N30.01 Acute cystitis with hematuria; E87.6 Hypokalemia; I10 Essential (primary) hypertension; J03.90 Acute tonsillitis, unspecified; R65.20 Severe sepsis without septic shock
CPT/HCPCS: 71010; 73630; 80048; 80053; 80307; 81001; 83036; 83605; 84155; 85025; 85027; 86703; 87040; 87086; 93005; 96365; 96367; 96375; J1650; J1885; J2405; J2543; J3370; J7030; J7040; J7050

== ENCOUNTER 2017-05-07 02:05 | Emergency (ER) | payer SELFPAY ==
[~2017-05-07] VITALS: Ht 175.3 cm; Wt 92.0 kg
[~2017-05-07 02:05] MED LIST: AUGM875T3 PO; BACT800T5 PO; LACTTAB8 PO; VALS160T6 PO
[2017-05-07 02:07] VITALS: BP 144/100; PULSE 114; RESP 18; TEMP 99.2; O2SAT 98
[2017-05-07 02:37] LABS: BLOOD, URINE MOD (NEG); COMMENT (UR) CULTURE INDICATED; CULTURE IF INDICATED CULTURE INDICATED; GLUCOSE,URINE NEG (NEG); KETONE, URINE NEG (NEG); MUCUS URINE FEW /lpf (OCC); NITRITE,URINE POS (NEG); PH, URINE 5.5 (5.0-8.5); SQUAMOUS EPITHELIAL CELL URINE 2 /hpf (0-5); URINE COLOR YELLOW (YELLW/STRAW)
[2017-05-07] MEDS ORDERED: SODIUM CHLORIDE 0.9% FLUSH 10 ML FLUSH IV FLUSH PRN (02:45)
[2017-05-07 03:03] LABS: AUTOMATED NEUTROPHIL # 10.1 TH/MM3 (1.8-7.7); BASOPHIL # 0.1 TH/MM3 (0-0.2); BASOPHIL % 0.7 % (0.0-2.0); EOSINOPHIL # 0.2 TH/MM3 (0-0.4); EOSINOPHIL % 1.3 % (0.0-4.0); HEMATOCRIT 46.6 % (35.0-46.0); HEMO FLAGS DIFF FINAL; LYMPH % 27.5 % (9.0-44.0); LYMPHOCYTE # 4.2 TH/MM3 (1.0-4.8); MEAN CELL VOLUME 84.5 FL (80.0-100.0); MEAN CORPUSCULAR HEMOGLOBIN 27.8 PG (27.0-34.0); MEAN CORPUSCULAR HGB CONC 32.9 % (32.0-36.0); MONO % 4.9 % (0.0-8.0); NEUT % 65.6 % (16.0-70.0); PLATELET COUNT 401 TH/MM3 (150-450); RED BLOOD COUNT 5.51 MIL/MM3 (4.00-5.30); RED CELL DISTRIBUTION WIDTH 13.8 % (11.6-17.2); WHITE BLOOD COUNT 15.3 TH/MM3 (4.0-11.0)
[2017-05-07 03:17] LABS: BICARBONATE 27.7 MEQ/L (21.0-32.0); POTASSIUM 3.4 MEQ/L (3.5-5.1)
--- NOTE | 2017-05-07 03:55 | PD ---
HPI Chief Complaint: Complaint Time Seen by Provider: 02:11 Travel History International Travel<30 days: No Contact w/Intl Traveler<30days: No Traveled to known affect area: No History of Present Illness HPI 42-year-old female presents emergency department for evaluation of urinary symptoms. Patient states she has history of UTI and sepsis which she was admitted for in January. 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 She denies any chest pain shortness of breath fever or abdominal pain just states that she is having burning and dysuria. Symptoms are moderate only when she urinates context as above, for the past few days. PFSH Past Medical History Cardiovascular Problems: Yes Genitourinary: Yes (SEPSIS R/T UTI) Hypertension: Yes ?: Not Tubal Ligation: Yes Past Surgical History Gynecologic Surgery: Yes (tubal ligation) Other Surgery: Yes Social History Alcohol Use: No Tobacco Use: No Substance Use: No Allergies-Medications (Allergen,Severity, Reaction): Coded Allergies: iodine (Verified Allergy, Unknown, 05/07/17) Uncoded Allergies: SEAFOOD (Allergy, Severe, ANAPHYLAXIS, 01/29/17) Reported Meds & Prescriptions Reported Meds & Active Scripts Active Keflex (Cephalexin) 500 Mg Cap 500 Mg PO Q6H 7 Days Reported Valsartan-Hydrochlorothiazide 160-25 Mg Tab 1 Tab PO DAILY Review of Systems Except as stated in HPI: all other systems reviewed are Neg Physical Exam Narrative GENERAL: Very well and healthy appearing female in no distress. SKIN: Focused skin assessment warm/dry. HEAD: Atraumatic. Normocephalic. EYES: Pupils equal and round. No scleral icterus. No injection or drainage. ENT: No nasal bleeding or discharge. Mucous membranes pink and moist. NECK: Trachea midline. No JVD. CARDIOVASCULAR: Regular rate and rhythm. No murmur appreciated. RESPIRATORY: No accessory muscle use. Clear to auscultation. Breath sounds equal bilaterally. GASTROINTESTINAL: Abdomen soft, non-tender, nondistended. Hepatic and splenic margins not palpable. MUSCULOSKELETAL: No obvious deformities. No clubbing. No cyanosis. No edema. NEUROLOGICAL: Awake and alert. No obvious cranial nerve deficits. Motor grossly within normal limits. Normal speech. PSYCHIATRIC: Appropriate mood and affect; insight and judgment normal. Data Data Last Documented VS Vital Signs Date Time Temp Pulse Resp B/P (MAP) Pulse Ox O2 Delivery O2 Flow Rate FiO2 05/07/17 02:07 99.2 114 18 144/100 (115) 98 Orders Orders Urinalysis - C+S If Indicated (05/07/17 02:11) Ed Urine Pregnancytest Poc (05/07/17 02:11) Urine Culture (05/07/17 02:20) Basic Metabolic Panel (Bmp) (05/07/17 02:40) Complete Blood Count With Diff (05/07/17 02:40) Iv Access Insert/Monitor (05/07/17 02:40) Ecg Monitoring (05/07/17 02:40) Oximetry (05/07/17 02:40) Sodium Chloride 0.9% Flush (Ns Flush) (05/07/17 02:45) Lactic Acid (05/07/17 03:46) Blood Culture (05/07/17 03:46) Ceftriaxone Inj (Rocephin Inj) (05/07/17 04:00) Ed Discharge Order (05/07/17 04:48) Sodium Chlor 0.9% 1000 Ml Inj (Ns 1000 M (05/07/17 05:15) Electrocardiogram (05/07/17 12:46) Labs Laboratory Tests Test 05/07/17 02:20 05/07/17 02:50 05/07/17 03:58 Urine Color YELLOW Urine Turbidity CLEAR Urine pH 5.5 Urine Specific [place] 1.017 Urine Protein TRACE mg/dL Urine Glucose (UA) NEG mg/dL Urine Ketones NEG mg/dL Urine Occult Blood MOD Urine Nitrite POS Urine Bilirubin NEG Urine Urobilinogen LESS THAN 2.0 MG/DL Urine Leukocyte Esterase MOD Urine RBC 24 /hpf Urine WBC 23 /hpf Urine Squamous Epithelial Cells 2 /hpf Urine Mucus FEW /lpf Microscopic Urinalysis Comment CULTURE INDICATED White Blood Count 15.3 TH/MM3 Red Blood Count 5.51 MIL/MM3 Hemoglobin 15.3 GM/DL Hematocrit 46.6 % Mean Corpuscular Volume 84.5 FL Mean Corpuscular Hemoglobin 27.8 PG Mean Corpuscular Hemoglobin Concent 32.9 % Red Cell Distribution Width 13.8 % Platelet Count 401 TH/MM3 Mean Platelet Volume 7.0 FL Neutrophils (%) (Auto) 65.6 % Lymphocytes (%) (Auto) 27.5 % Monocytes (%) (Auto) 4.9 % Eosinophils (%) (Auto) 1.3 % Basophils (%) (Auto) 0.7 % Neutrophils # (Auto) 10.1 TH/MM3 Lymphocytes # (Auto) 4.2 TH/MM3 Monocytes # (Auto) 0.7 TH/MM3 Eosinophils # (Auto) 0.2 TH/MM3 Basophils # (Auto) 0.1 TH/MM3 CBC Comment DIFF FINAL Differential Comment Blood Urea Nitrogen 21 MG/DL Creatinine 1.19 MG/DL Random Glucose 108 MG/DL Calcium Level 8.7 MG/DL Sodium Level 140 MEQ/L Potassium Level 3.4 MEQ/L Chloride Level 103 MEQ/L Carbon Dioxide Level 27.7 MEQ/L Anion Gap 9 MEQ/L Estimat Glomerular Filtration Rate 50 ML/MIN Lactic Acid Level 1.3 mmol/L MDM Medical Decision Making Medical Screen Exam Complete: Yes Emergency Medical Condition: Yes Differential Diagnosis Sepsis, UTI, severe sepsis highly unlikely. Pyelonephritis. Narrative Course Patient roomed in emergency department, she appears quite well and healthy and certainly not ill. She is tachycardic but has a history of tachydysrhythmia. White blood cell count minimally elevated but technically does meet SIRS criteria and therefore sepsis. This was discussed with the patient and she was offered admission to the hospital but she would prefer to try go home. Lactic acid was negative, blood cultures were drawn and sent. She is given a dose of Rocephin in emerged permit as well as a liter of normal saline. Lactic acid was normal again the need for aggressive fluid hydration. As well as the patient looks I told her cautiously she could be discharged home she seems reliable for follow-up and I discussed return to ED criteria in detail with her. She still would like to go home. Diagnosis Primary Impression: Urinary tract infection Qualified Codes: N30.00 - Acute cystitis without hematuria Med/Other Pt SpecificInfo: Prescription(s) given Scripts Cephalexin (Keflex) 500 Mg Cap 500 MG PO Q6H for Infection for 7 Days, #28 CAP 0 Refills Prov: Richard Ghotra MD 05/07/17 Disposition: 01 DISCHARGE HOME Condition: Stable Richard Ghotra MD May 07, 2017 03:55
[2017-05-07] MEDS ORDERED: cefTRIAXone INJ 1,000 MG in SODIUM CHLORIDE 0.9% INJ 100 ML IV ONE (04:00)
[2017-05-07] MEDS ORDERED: CEPH-460 PO (04:48)
[2017-05-07] MEDS ORDERED: SODIUM CHLOR 0.9% 1000 ML INJ 1,000 ML IV ONE (05:15)
--- NOTE | 2017-05-07 23:45 | EKG ---
Date Performed: 05/07/2017 Time Performed: 12:46:36 PTAGE: 42 years EKG: Sinus rhythm WITH OCCASIONAL VENTRICULAR PREMATURE COMPLEXES WITH FREQUENT SUPRAVENTRICULAR PREMATURE COMPLEXES P OSSIBLE LEFT ATRIAL ENLARGEMENT ABNORMAL RHYTHM ECG Compared to the PREVIOUS TRACING from 01/29/17, now with frequent PACs DOCTOR: Efraín Ibanez Interpretating Date/Time 05/07/2017 23:45:07
== END 2017-05-07 05:34 | disposition home or self-care (01) ==
LOC: NEPC 02:05
DX: N39.0 Urinary tract infection, site not specified (principal); B96.20 Unspecified Escherichia coli [E. coli] as the cause of diseases classified elsewhere; R00.0 Tachycardia, unspecified; I10 Essential (primary) hypertension; I49.3 Ventricular premature depolarization; R94.31 Abnormal electrocardiogram [ECG] [EKG]; Z79.899 Other long term (current) drug therapy
CPT/HCPCS: 80048; 81001; 83605; 84703; 85025; 87040; 87077; 87086; 87186; 93005; 96374; 99285; J0696; J7030

== ENCOUNTER 2017-08-19 15:49 | Emergency (ER) | payer SELFPAY ==
[~2017-08-19] VITALS: Ht 170.2 cm; Wt 68.0 kg
[~2017-08-19 15:49] MED LIST changes: -AUGM875T3 PO; -BACT800T5 PO; +CEPH-460 PO; -LACTTAB8 PO
[2017-08-19 16:00] VITALS: BP_SYST 189; BP_SYST 203; BP_DIAS 93; BP_DIAS 97; PULSE 119; RESP 20; TEMP 98.5; O2SAT 100
--- NOTE | 2017-08-19 17:01 | RADRPT ---
EXAM DATE/TIME: 08/19/2017 16:14 [facility] COMPARISON: No previous studies available for comparison. INDICATIONS : Cough with intermittent chest pain for three days. MEDICAL HISTORY : Hypertension. SURGICAL HISTORY : Tubal ligation. ENCOUNTER: Initial ACUITY: 3 days PAIN SCORE: 8/10 LOCATION: Bilateral chest FINDINGS: Moderate elevation of the right hemidiaphragm. Lungs are clear.. The cardiomediastinal contours are unremarkable. Osseous structures are intact. CONCLUSION: Elevation right hemidiaphragm otherwise negative. Saul Becerra MD FACR on August 19, 2017 at 16:59 Board Certified Radiologist. This report was verified electronically.
[2017-08-19 17:25] LABS: AUTOMATED NEUTROPHIL # 5.5 TH/MM3 (1.8-7.7); BASOPHIL # 0.1 TH/MM3 (0-0.2); BASOPHIL % 0.9 % (0.0-2.0); EOSINOPHIL # 0.5 TH/MM3 (0-0.4); EOSINOPHIL % 6.5 % (0.0-4.0); HEMATOCRIT 42.5 % (35.0-46.0); HEMOGLOBIN 14.4 GM/DL (11.6-15.3); LYMPH % 11.1 % (9.0-44.0); LYMPHOCYTE # 0.8 TH/MM3 (1.0-4.8); MEAN CELL VOLUME 83.4 FL (80.0-100.0); MEAN CORPUSCULAR HEMOGLOBIN 28.3 PG (27.0-34.0); MEAN PLATELET VOLUME 6.6 FL (7.0-11.0); MONO % 7.8 % (0.0-8.0); MONOCYTE # 0.6 TH/MM3 (0-0.9); NEUT % 73.7 % (16.0-70.0); PLATELET COUNT 402 TH/MM3 (150-450); RED CELL DISTRIBUTION WIDTH 14.8 % (11.6-17.2); WHITE BLOOD COUNT 7.5 TH/MM3 (4.0-11.0)
[2017-08-19 17:36] LABS: BICARBONATE 28.9 MEQ/L (21.0-32.0); BLOOD UREA NITROGEN 17 MG/DL (7-18); CALCIUM 8.8 MG/DL (8.5-10.1); CHLORIDE 101 MEQ/L (98-107); CREATININE 1.02 MG/DL (0.50-1.00); GLOMERULAR FILTRATION RATE 59 ML/MIN (>89); GLUCOSE,RANDOM 105 MG/DL (74-106); SODIUM (NA) 136 MEQ/L (136-145)
[2017-08-19 17:40] LABS: TROPONIN I LESS THAN 0.02 NG/ML (0.02-0.05)
[2017-08-19 19:35] VITALS: BP 194/139; PULSE 100; RESP 20; TEMP 98.5; O2SAT 98
[2017-08-19] MEDS ORDERED: SODIUM CHLOR 0.9% 1000 ML INJ 1,000 ML IV SCH (19:37)
--- NOTE | 2017-08-19 19:40 | PD ---
HPI Chief Complaint: Cold / Flu Symptoms Time Seen by Provider: 19:31 Travel History International Travel<30 days: No Contact w/Intl Traveler<30days: No Traveled to known affect area: No History of Present Illness HPI 42-year-old female presents for evaluation. For the past 4 days she has had cough, congestion, headache, nausea, vomiting, chills. The cough is productive with green sputum production. The headache is posterior, aching, unrelieved with [id number] analgesics. She reports history of frequent similar headaches. The patient is noted to be hypertensive- she reports that she ran out of her valsartan hydrochlorothiazide 1 month ago and has not been able to get a refill. She denies diarrhea, abdominal pain, dysuria, flank pain, sore throat, recent travel. Denies any IV drug use. She has no other complaints at this time. [facility] Past Medical History Medical History: Denies Significant Hx Cardiovascular Problems: Yes Genitourinary: Yes (SEPSIS R/T UTI) Hypertension: Yes Immunizations Current: Yes Tetanus Vaccination: Unknown Influenza Vaccination: No ?: Not LMP: 07/27/17 Tubal Ligation: Yes Past Surgical History Surgical History: No Previous Surgery Gynecologic Surgery: Yes (tubal ligation) Other Surgery: Yes Social History Alcohol Use: No Tobacco Use: No Substance Use: No Allergies-Medications (Allergen,Severity, Reaction): Coded Allergies: iodine (Verified Allergy, Unknown, 05/07/17) Uncoded Allergies: SEAFOOD (Allergy, Severe, ANAPHYLAXIS, 01/29/17) Reported Meds & Prescriptions Reported Meds & Active Scripts Active Flonase Nasal [place] (Fluticasone Nasal [place]) 50 Mcg/Act [place] 100 Mcg EACH NARE BID Augmentin (Amoxicillin-Clavulanate) 875-125 Mg Tab 1 Tab PO BID 10 Days Valsartan-Hydrochlorothiazide 160-25 Mg Tab 1 Tab PO DAILY Review of Systems Except as stated in HPI: all other systems reviewed are Neg Physical Exam Narrative GENERAL: [Well-developed well-nourished female in no acute distress SKIN: Warm and dry. HEAD: Atraumatic. Normocephalic. EYES: Pupils equal and round. No scleral icterus. No injection or drainage. ENT: No nasal bleeding or discharge. Mucous membranes pink and moist. NECK: Trachea midline. No JVD. CARDIOVASCULAR: Regular rate and rhythm. No murmur appreciated. RESPIRATORY: No accessory muscle use. Clear to auscultation. Breath sounds equal bilaterally. GASTROINTESTINAL: Abdomen soft, non-tender, nondistended. Hepatic and splenic margins not palpable. MUSCULOSKELETAL: No obvious deformities. No clubbing. No cyanosis. No edema. NEUROLOGICAL: Awake and alert. No obvious cranial nerve deficits. Motor grossly within normal limits. Normal speech. PSYCHIATRIC: Appropriate mood and affect; insight and judgment normal. Data Data Last Documented VS Vital Signs Date Time Temp Pulse Resp B/P (MAP) Pulse Ox O2 Delivery O2 Flow Rate FiO2 08/19/17 19:35 98.5 100 20 194/139 (157) 98 Room Air Orders Orders Complete Blood Count With Diff (08/19/17 16:03) Basic Metabolic Panel (Bmp) (08/19/17 16:03) Ckmb (Isoenzyme) Profile (08/19/17 16:03) Troponin I (08/19/17 16:03) Chest, Pa & Lat (08/19/17 ) Ct Brain W/O Iv Contrast(Rout) (08/19/17 ) Ed Urine Pregnancytest Poc (08/19/17 19:37) Labetalol Inj (Trandate Inj) (08/19/17 19:45) Ondansetron Inj (Zofran Inj) (08/19/17 19:45) Sodium Chlor 0.9% 1000 Ml Inj (Ns 1000 M (08/19/17 19:37) Influenzae A/B Antigen (08/19/17 19:37) Ed Discharge Order (08/19/17 20:46) Labs Laboratory Tests Test 08/19/17 16:30 White Blood Count 7.5 TH/MM3 Red Blood Count 5.10 MIL/MM3 Hemoglobin 14.4 GM/DL Hematocrit 42.5 % Mean Corpuscular Volume 83.4 FL Mean Corpuscular Hemoglobin 28.3 PG Mean Corpuscular Hemoglobin Concent 34.0 % Red Cell Distribution Width 14.8 % Platelet Count 402 TH/MM3 Mean Platelet Volume 6.6 FL Neutrophils (%) (Auto) 73.7 % Lymphocytes (%) (Auto) 11.1 % Monocytes (%) (Auto) 7.8 % Eosinophils (%) (Auto) 6.5 % Basophils (%) (Auto) 0.9 % Neutrophils # (Auto) 5.5 TH/MM3 Lymphocytes # (Auto) 0.8 TH/MM3 Monocytes # (Auto) 0.6 TH/MM3 Eosinophils # (Auto) 0.5 TH/MM3 Basophils # (Auto) 0.1 TH/MM3 CBC Comment DIFF FINAL Differential Comment Blood Urea Nitrogen 17 MG/DL Creatinine 1.02 MG/DL Random Glucose 105 MG/DL Calcium Level 8.8 MG/DL Sodium Level 136 MEQ/L Potassium Level 3.9 MEQ/L Chloride Level 101 MEQ/L Carbon Dioxide Level 28.9 MEQ/L Anion Gap 6 MEQ/L Estimat Glomerular Filtration Rate 59 ML/MIN Total Creatine Kinase 57 U/L Troponin I LESS THAN 0.02 NG/ML MDM Medical Decision Making Medical Screen Exam Complete: Yes Emergency Medical Condition: Yes Medical Record Reviewed: Yes Differential Diagnosis Bronchitis, pneumonia, influenza, hypertensive urgency, intracranial mass, migraine, occipital neuralgia Narrative Course Initial lab work and chest x-ray were obtained in triage. The CBC is unremarkable. BMP reveals a GFR 59 otherwise unremarkable. Cardiac enzymes are negative. Chest x-ray reveals elevation of the right hemidiaphragm otherwise negative. She is hypertensive. She will be given IV labetalol as well as Zofran, IV fluids. CT the brain, influenza antigen tests have been ordered. CT the brain reveals sinus disease involving the right frontal, ethmoid, maxillary sinuses. Her blood pressure is improved to 140/80. Her symptoms have improved. She will be discharged with Augmentin, Flonase for sinusitis as well as a refill of her blood pressure medication. Diagnosis Primary Impression: Sinusitis Additional Impression: Hypertension Additional Instructions: Medication as prescribed. Follow closely with a primary care physician. Return for any emergent medical conditions. Med/Other Pt SpecificInfo: Prescription(s) given Scripts Fluticasone Nasal [place] (Flonase Nasal [place]) 50 Mcg/Act [place] 100 MCG EACH NARE BID for Allergies, #1 BOTTLE 0 Refills Prov: Gianni Treviño MD 08/19/17 Amoxicillin-Clavulanate (Augmentin) 875-125 Mg Tab 1 TAB PO BID for Infection for 10 Days, #20 TAB 0 Refills Prov: Gianni Treviño MD 08/19/17 Valsartan-Hydrochlorothiazide (Valsartan-Hydrochlorothiazide) 160-25 Mg Tab 1 TAB PO DAILY for Blood Pressure Management, #30 TAB 0 Refills Prov: Gianni Treviño MD 08/19/17 Disposition: 01 DISCHARGE HOME Condition: Stable Sidney Hale Aug 19, 2017 19:40
[2017-08-19] MEDS ORDERED: ONDANSETRON HCL 4 MG/2 ML VIAL IV PUSH ONE (19:45)
[2017-08-19] MEDS ORDERED: LABETALOL HCL 100 MG/20 ML VIAL IV PUSH ONE (19:45)
--- NOTE | 2017-08-19 20:40 | RADRPT ---
EXAM DATE/TIME: 08/19/2017 20:12 [facility] COMPARISON: No previous studies available for comparison. INDICATIONS : Headache with green sputum. RADIATION DOSE: 40.33 CTDIvol (mGy) MEDICAL HISTORY : Cardiovascular disease. Hypertension. SURGICAL HISTORY : Tubal ligation. ENCOUNTER: Initial ACUITY: 1 day PAIN SCALE: 7/10 LOCATION: cranial TECHNIQUE: Multiple contiguous axial images were obtained of the head. Using automated exposure control and adj ustment of the mA and/or kV according to patient size, radiation dose was kept as low as reasonably a chievable to obtain optimal diagnostic quality images. DICOM format image data is available electro nically for review and comparison. FINDINGS: CEREBRUM: The ventricles are normal for age. No evidence of midline shift, mass lesion, hemorrhage or acute in farction. No extra-axial fluid collections are seen. POSTERIOR FOSSA: The cerebellum and brainstem are intact. The 4th ventricle is midline. The cerebellopontine angle i s unremarkable. EXTRACRANIAL: Complete opacification of the visualized portion of the right maxillary and right ethmoid and right f rontal sinuses. There is loss of delineation of the medial maxillary wall septum. SKULL: The calvaria is intact. No evidence of skull fracture. CONCLUSION: 1. No acute findings in the brain. 2. Sinus disease involving right frontal, ethmoid, and maxillary sinuses. Lonny Valenzuela MD on August 19, 2017 at 20:37 Board Certified Radiologist. This report was verified electronically.
[2017-08-19] MEDS ORDERED: VALS160T6 PO (20:46)
[2017-08-19] MEDS ORDERED: FLUT1SPR5 EACH NARE (20:46)
[2017-08-19] MEDS ORDERED: AUGM875T3 PO (20:46)
[2017-08-19 20:52] VITALS: BP 148/89
[2017-08-19 21:06] VITALS: BP 148/68; TEMP 98
== END 2017-08-19 21:26 | disposition home or self-care (01) ==
LOC: NEPD 15:49
DX: J32.9 Chronic sinusitis, unspecified (principal); I10 Essential (primary) hypertension; R07.9 Chest pain, unspecified
CPT/HCPCS: 70450; 71046; 80048; 82550; 84484; 84703; 85025; 87804; 96374; 96375; 99285; J2405; J7030